=== PATIENT | female | born 1990 ===

== ENCOUNTER 2022-06-08 13:21 | Outpatient (CLI) | payer BC, SELFPAY ==
[2022-06-08 17:32] LABS: Chloride* 107 mmol/L (96-114); Sodium* 140 mmol/L (135-149)
[2022-06-08 17:33] LABS: Potassium* 4.1 mmol/L (3.6-5.1)
[2022-06-08 17:35] LABS: Blood Urea Nitrogen* 10 mg/dL (5-24); Carbon Dioxide* 29 mmol/L (20-32); Cholesterol* 189 mg/dL (90-199); Creatinine* 0.6 mg/dL (0.5-1.5); Estimated Glomerular Filt Rate 123 ml/min
[2022-06-08 17:36] LABS: Calcium* 8.7 mg/dL (8.4-10.6); Glucose* 72 mg/dL (60-115); HDL Cholesterol* 86 mg/dL (>=50); LDL Cholesterol Calculated 77 mg/dL (<100); Triglycerides* 129 mg/dL (40-149)
== END 2022-06-08 13:22 | disposition home or self-care (01) ==
PROVIDERS: Visit Provider Obstetrics & Gynecology
DX: Z01.419 Encounter for gynecological examination (general) (routine) without abnormal findings (principal); Z13.6 Encounter for screening for cardiovascular disorders; Z11.3 Encounter for screening for infections with a predominantly sexual mode of transmission
CPT/HCPCS: 80048; 80061; 87491; 87591